=== PATIENT | female | born 1960 | race Caucasian/White ===

== ENCOUNTER 2019-10-29 12:45 | Emergency (ER) | payer BC, OTHER ==
[~2019-10-29] VITALS: Ht 165 cm; Wt 77.4 kg
[2019-10-29] MEDS ORDERED: SERT100T8 (12:57)
[2019-10-29] MEDS ORDERED: LEVO50TA6 (12:57)
[2019-10-29] MEDS ORDERED: HYDR25TA4 (12:57)
[2019-10-29] MEDS ORDERED: AMIT50TA3 (12:57)
[2019-10-29] MEDS ORDERED: LACTATED RINGERS 1,000 ML IV ONE (12:58)
[2019-10-29] MEDS ORDERED: KETOROLAC 30 MG/ML VIAL IVP STA (13:09)
[2019-10-29] MEDS ORDERED: ONDANSETRON 4 MG/2 ML (SDV) Z0FRAN IVP ONE (13:15)
--- NOTE | 2019-10-29 13:15 | ED Back Pain ---
General Chief Complaint: Back Problems Stated Complaint: L LOWER ABD PAIN Nursing Triage Note: LEFT FLANK PAIN STARTING LAST NIGHT. Nursing Sepsis Screen: Possible Severe Sepsis Risk History of Present Illness Date Seen by Provider: Oct 29, 2019 Time Seen by Provider: 13:10 Initial Comments 59-year-old female presents with left flank pain last evening. The pain was intermittent through the night however she reports that is more continuous and cramping in nature today. She had a kidney stone approximately 10 years ago that required lithotripsy. She's taken no anti-inflammatories or pain medicine. Location: Other Timing/Duration: 12-24 Hours Severity: Moderate Pain/Injury Location: Other (and left flank) Associated Symptoms: denies symptoms; No muscle spasms, No fever, No weakness, No numbness in legs/feet, No tingling in legs/feet, No sensory/motor loss, No lower back pain, No loss of bladder control, No loss of bowel control, No other Allergies and Home Medications Allergies Coded Allergies: meperidine (Verified Allergy, Unknown, 10/29/19) Home Medications Hydrocodone Bit/Acetaminophen 1 Tab Tab, 1-2 EACH PO Q6H PRN for PAIN-MODERATE Prescribed by: ANTONIETTA CROWE on 10/29/19 1436 Ondansetron 4 Mg Tab.rapdis, 4 MG PO Q6H PRN for NAUSEA/VOMITING Prescribed by: ANTONIETTA CROWE on 10/29/19 1436 Patient Home Medication List Home Medication List Reviewed: Yes Review of Systems Constitutional: no symptoms reported, see HPI Genitourinary: no symptoms reported, see HPI; No hematuria Musculoskeletal: see HPI, back pain (and left flank no direct back pain.) All Other Systems Reviewed Negative Unless Noted: Yes Past [id number]-Mzbfnm Hx Past Med/Social Hx: Reviewed Nursing Past Med/Soc Hx Patient Social History Recent Foreign Travel: No Contact w/Someone Who Travel: No Recent Infectious Disease Expo: No Recent Hopitalizations: No Seasonal Allergies Seasonal Allergies: No Past Medical History Orthopedic, Tubal Ligation Respiratory: No Cardiac: Yes Hypertension Neurological: No Genitourinary: Yes Kidney Stones Gastrointestinal: No Musculoskeletal: No Endocrine: Yes Hypothyroidsim HEENT: No Cancer: No Physical Exam Vital Signs Vital Signs - First Documented 10/29/19 10/29/19 12:48 14:05 Temp 37.0 Pulse 110 Resp 24 B/P (MAP) 114/70 (85) Pulse Ox 100 O2 Delivery Room Air O2 Flow Rate 2.00 Capillary Refill : Less Than 3 Seconds Height, Weight, BMI Height: '" Weight: lbs. oz. kg; 28.00 BMI Method: General Appearance: No Apparent Distress, WD/WN HEENT: PERRL/EOMI, TMs Normal, Normal ENT Inspection, Pharynx Normal Neck: Full Range of Motion, Normal Inspection, Non Tender, Supple Cardiovascular: Regular Rate, Rhythm, No Edema, No Murmur, Normal Peripheral Pulses Respiratory: Chest Non Tender, Lungs Clear, Normal Breath Sounds Gastrointestinal: Normal Bowel Sounds, Non Tender, Soft Back: Normal Inspection, CVA Tenderness (L); No CVA Tenderness (R), No Decreased Range of Motion, No Muscle Spasm, No Vertebral Tenderness Neurologic/Psychiatric: Alert, Oriented x3, No Motor/Sensory Deficits, Normal Mood/Affect Skin: Normal Color, Warm/Dry Progress/Results/Core Measures Results/Orders My Orders Orders - ANTONIETTA CROWE Ua Culture If Indicated (10/29/19 12:58) Ed Iv/Invasive Line Start (10/29/19 12:58) Lactated Ringers (Lr 1000 Ml Iv Solution (10/29/19 12:58) Ondansetron Injection (Zofran Injectio (10/29/19 13:15) Ketorolac Injection (Toradol Injection) (10/29/19 13:09) Fentanyl Injection (Sublimaze Injection (10/29/19 13:30) Ct Abd/Pelvis Wo(Kidney Stone) (10/29/19 13:28) Medications Given in ED Current Medications Medications Dose Ordered Sig/Alessia Route Start Time Stop Time Status Last Admin Dose Admin Fentanyl Citrate 50 mcg ONCE ONCE IVP 10/29/19 13:30 10/29/19 13:31 DC 10/29/19 13:39 50 MCG Lactated Ringer's 1,000 ml @ 0 mls/hr Q0M ONCE IV 10/29/19 12:58 10/29/19 13:01 DC 10/29/19 13:14 1,000 MLS/HR Ondansetron HCl 4 mg ONCE ONCE IVP 10/29/19 13:15 10/29/19 13:16 DC 10/29/19 13:13 4 MG Vital Signs/I&O 10/29/19 10/29/19 12:48 14:05 Temp 37.0 Pulse 110 Resp 24 B/P (MAP) 114/70 (85) Pulse Ox 100 93 O2 Delivery Room Air Nasal Cannula O2 Flow Rate 2.00 Blood Pressure Mean: 85 Progress Progress Note : Time: 13:10 Progress Note Patient seen and evaluated, will obtain a UA and a CT of abdomen and pelvis. LR 1 L per IV, Toradol 30 mg IV for pain. Zofran 4 mg IV for nausea. 1340 patient unable to give urine specimen, awaiting CT results. Pain still 05/20, will give fentanyl [address] results discussed with the patient and her spouse. 1430 patient reports pain, nausea and vomiting has improved. Patient comfortable trying to return home to [place]. Will give pain prescription and Zofran for ride home, in case symptoms worsen. Discharge instructions and return precautions reviewed with him. We are unable to make a CT of her CT scan, but she can have a clotted if needed. Instructions were given to her spouse. CT report printed, for them. Diagnostic Imaging Diagonstic Imaging: CT Plain Films/CT/US/NM/MRI: abdomen, pelvis Comments NAME: MOISES CAVAZOS REC#: [id number] PT STATUS: REG ER : 1960 PHYSICIAN: ANTONIETTA CROWE ADMIT DATE: 10/29/19/ER Draft Date of Exam:10/29/19 CT ABD/PELVIS WO(KIDNEY STONE) PROCEDURE: CT urinary tract, rule out kidney stone. TECHNIQUE: Multiple contiguous axial images were obtained through the abdomen and pelvis without the use of intravenous contrast. Auto Exposure Controls were utilized during the CT exam to meet ALARA standards for radiation dose reduction. INDICATION: Left-sided flank pain. COMPARISON: None. DISCUSSION: The lung bases are well aerated. Normal heart size. No pleural or pericardial fluid. Fatty infiltration of liver is noted. The liver is normal in size. The gallbladder, pancreas, stomach, spleen, and adrenal glands are unremarkable. There is a 3 mm stone within the distal left ureter approximately 2-3 cm from the ureterovesical junction which contributes to hydroureter and moderate hydronephrosis on the left. There may be an additional stone within the mid left ureter measuring 2 x 3 mm. Uterus and urinary bladder are unremarkable. No hydronephrosis on the right. The appendix is normal. The large and small bowel loops appear within normal limits. The aorta is normal in caliber. No ascites or pathologically enlarged lymph nodes identified. Advanced degenerative disc disease noted at L2-L3. IMPRESSION: 1. Moderate left hydronephrosis secondary to a 3 mm stone within the distal left ureter. There may be an additional 2-3 mm stone within the more mid left ureter. 2. Fatty liver. Dictated on workstation # [id number] Dict: 10/29/19 1404 Trans: 10/29/19 1409 [id number] [id number] Interpreted by: YIMI LAU MD Electronically signed by: Departure Impression Primary Impression: Left renal stone Disposition: HOME, SELF-CARE Condition: Improved Departure-Patient Inst. Decision time for Depature: 14:30 Referrals: NO,LOCAL PHYSICIAN (PCP/Family) Primary Care Physician Patient Instructions: Kidney Stones (DC) Add. Discharge Instructions: Increase oral intake. 16 oz every 2 hours, while awake. Strain urine. Follow up with Urology, if symptoms are not improving or worsen. Use Hydrocodone 1-2 tablets every 6 hours for pain. Use Zofran 1-2 tablets every 6-8 hours for nausea/vomiting. Diet as tolerated. Return to the emergency department for new, urgent health care needs. All discharge instructions reviewed with patient and/or family. Voiced understanding. Scripts Hydrocodone Bit/Acetaminophen (Hydrocodone/Acetaminophen 5/325mg Tablet) 1 Tab Tab 1-2 EACH PO Q6H PRN for PAIN-MODERATE MDD 10, #20 TAB 0 Refills Prov: ANTONIETTA CROWE 10/29/19 Ondansetron (Ondansetron Odt) 4 Mg Tab.rapdis 4 MG PO Q6H PRN for NAUSEA/VOMITING, #15 TAB 0 Refills Prov: ANTONIETTA CROWE 10/29/19 ANTONIETTA CROWE Oct 29, 2019 13:15
[2019-10-29] MEDS ORDERED: fentaNYL INJECTION 100 MCG/2 ML AMP IVP ONE (13:30)
--- NOTE | 2019-10-29 14:10 | Diagnostic Imaging Report ---
PROCEDURE: CT urinary tract, rule out kidney stone. TECHNIQUE: Multiple contiguous axial images were obtained through the abdomen and pelvis without the use of intravenous contrast. Auto Exposure Controls were utilized during the CT exam to meet ALARA standards for radiation dose reduction. INDICATION: Left-sided flank pain. COMPARISON: None. DISCUSSION: The lung bases are well aerated. Normal heart size. No pleural or pericardial fluid. Fatty infiltration of liver is noted. The liver is normal in size. The gallbladder, pancreas, stomach, spleen, and adrenal glands are unremarkable. There is a 3 mm stone within the distal left ureter approximately 2-3 cm from the ureterovesical junction which contributes to hydroureter and moderate hydronephrosis on the left. There may be an additional stone within the mid left ureter measuring 2 x 3 mm. Uterus and urinary bladder are unremarkable. No hydronephrosis on the right. The appendix is normal. The large and small bowel loops appear within normal limits. The aorta is normal in caliber. No ascites or pathologically enlarged lymph nodes identified. Advanced degenerative disc disease noted at L2-L3. IMPRESSION: 1. Moderate left hydronephrosis secondary to a 3 mm stone within the distal left ureter. There may be an additional 2-3 mm stone within the more mid left ureter. 2. Fatty liver. Dictated by: Dictated on workstation # [id number]
[2019-10-29] MEDS ORDERED: ACHD5005 PO (14:36)
[2019-10-29] MEDS ORDERED: ONDA4TAB11 PO (14:36)
[2019-10-29 14:45] VITALS: BP 118/72
== END 2019-10-29 14:45 | disposition home or self-care (01) ==
LOC: ER 12:46
DX: N13.2 Hydronephrosis with renal and ureteral calculous obstruction (principal); I10 Essential (primary) hypertension; E03.9 Hypothyroidism, unspecified; Z87.442 Personal history of urinary calculi; Z88.5 Allergy status to narcotic agent; Z98.51 Tubal ligation status
CPT/HCPCS: 74176; 96374; 96375